=== PATIENT | female | born 1990 | race Caucasian/White ===

== ENCOUNTER 2022-11-05 09:35 | Outpatient (OUT) | payer OTHER, SELFPAY ==
[2022-11-05 10:37] LABS: Estimated Average Glucose 220 mg/dL; Glycohemoglobin A1C 9.3 % (4.5-6.2)
[2022-11-05 11:16] LABS: LDL Cholesterol Direct 83 mg/dL; Triglycerides 658 mg/dL (<=150)
== END 2022-11-05 09:36 | disposition home or self-care (01) ==
PROVIDERS: PCP Internal Medicine; Visit Provider Internal Medicine
DX: E11.65 Type 2 diabetes mellitus with hyperglycemia (principal)
CPT/HCPCS: 36415; 83036; 83721; 84478

== ENCOUNTER 2023-07-08 12:51 | Outpatient (OUT) | payer OTHER, SELFPAY ==
--- NOTE | 2023-07-08 13:14 | US_ITS ---
The [address] [address] Patient Name: YUE SIMMONS MRN: [id number] date: 1990 Sex: F Assigned Patient Location: [place] Current Patient Location: [place] Accession/Order Number: [id number] Exam Date: 07/08/2023 13:18 Report Date: 07/08/2023 14:18 At the request of: RADHA ARMAS Procedure: US thyroid EXAM: US thyroid HISTORY: diffuse goiter E04.0 COMPARISON: None. TECHNIQUE: Multiple sonographic images of the thyroid gland were obtained, supplemented with Doppler. FINDINGS: The right lobe measures 3.7 x 1.9 x 1.2 cm. Heterogeneous echoes are noted throughout. No nodule is identified within. The left lobe measures 4.2 x 1.5 x 1.5 cm. Heterogeneous echoes are noted throughout. No focal nodule is identified within. The isthmus measures 2 mm in thickness. There is no evidence of a focal mass or abnormal fluid surrounding the gland. US/US thyroid IMPRESSION: The thyroid gland is not enlarged. Heterogeneous echoes are noted throughout. No cystic or solid mass is identified within. TI RADS 1. Electronically authenticated by: TEJINDER TRINIDAD Date: 07/08/2023 14:18
[2023-07-08 13:43] LABS: Estimated Average Glucose 192 mg/dL; Glycohemoglobin A1C 8.3 % (4.5-6.2)
[2023-07-08 14:46] LABS: Free T4 1.04 ng/dL (0.76-1.46)
[2023-07-08 14:55] LABS: Thyroid Stimulating Hormone 3.108 uIU/mL (0.358-3.740)
[2023-07-09 08:11] LABS: Triiodothyronine (T3) 175 ng/dL (71-180)
== END 2023-07-08 12:52 | disposition home or self-care (01) ==
LOC: US 12:51
PROVIDERS: PCP Internal Medicine; Visit Provider Internal Medicine
DX: E04.0 Nontoxic diffuse goiter (principal)
CPT/HCPCS: 36415; 76536; 83036; 84439; 84443; 84480